=== PATIENT | male | born 1970 | race Caucasian/White ===

== ENCOUNTER 2018-10-07 17:39 | Emergency (ER) | payer OTHER ==
--- NOTE | 2018-10-07 18:10 | ED Physician Documentation ---
Eye Problem - HISTORIAN Historian: patient - HPI Stated Complaint: right eye injury Chief Complaint: Eye Problems Additional Information: Patient presents to ED with a 1 cm laceration above right eye after hitting himself accidently with a crowbar. Patient reports tearing out an old deck using a crowbar, his hands were sweaty and the crowbar slipped hitting him in the eye. He states his safety glasses broke causing the cut to his eye. He denies loss of consciousness. He is not on blood thinners. Onset: hours (1) Associated symptoms: pain. denies: sensitivity to light, double vision Location: right eye Severity: mild Apparent Injury: no Context: direct trauma Where: home - ROS CONST: no problems MS/SKIN/LYMPH: denies: weakness CVS/RESP: none EYES/ENT: none GI/: denies: nausea, vomiting NEURO: denies: headache - PAST HX Past History: none Immunizations: tetanus (current, 3 years ago) Allergies/Adverse Reactions: Allergies Allergy/AdvReac Type Severity Reaction Status Date / Time No Known Allergies Allergy Verified 10/07/18 18:11 Home Medications: Ambulatory Orders Medication Instructions Recorded Venlafaxine HCl 75 mg PO DAILY 10/07/18 - SOCIAL HX Smoking History: cigarettes, greater than 1 pack/day Alcohol Use: occasionally Drug Use: none - FAMILY HX Family History: none - REVIEWED ASSESSMENTS Nursing Assessment Reviewed: Yes Vitals Reviewed: Yes Procedures - Laceration/Wound Repair Wound Location: face Wound Length: 1 cm Wound's Depth, Shape: superficial Wound Explored: clean Betadine Prep?: No Wound Debrided: minimal Wound Repaired With: Dermabond Eye Problem Physical Exam - Physical Exam General Appearance: no acute distress, alert Examined with Slit Lamp: No Visual Acuity: see nursing assessment Eyelids: edema (R), ecchymosis Conjunctiva and Sclera: subconjunctival hemorrhage (R) EOM: intact Pupils: equal Head/ENT: nml inspection Skin: nml color, warm Neck/Back: nml inspection Respiratory: no resp distress CVS: reg rate & rhythm, heart sounds normal Abdomen: non-tender, nml bowel sounds Neuro/Psych: oriented x3, neuro intact, mood/affect nml Discharge Clincal Impression: Eyelid laceration, right Qualifiers: Encounter type: initial encounter Qualified Code(s): S01.111A - Laceration without foreign body of right eyelid and periocular area, initial encounter Referrals: Primary Doctor,No [Primary Care Provider] - 2 Days Additional Instructions: 1. Keep laceration dry. Do NOT apply lotions, ointments or other solutions to lacerations 2. The skin glue will wear off in 7-10 days. Do not pick at the glue 3. Follow up with PCP within 1 week 4. Return to ER for new or worsening symptoms Condition: Stable Disposition: 01 HOME, SELF-CARE Decision to Admit: NO Date of Decison to Admit: 10/07/18 Decision Time: 18:14
[2018-10-07 18:45] VITALS: BP 133/85
== END 2018-10-07 18:23 | disposition home or self-care (01) ==
LOC: ED 17:39
DX: S01.111A Laceration without foreign body of right eyelid and periocular area, initial encounter (principal); W25.XXXA Contact with sharp glass, initial encounter
CPT/HCPCS: 12011; 99281; 99282